=== PATIENT | male | born 1975 | race Hispanic/Latino ===

== ENCOUNTER 2017-08-05 04:33 | Emergency (ER) | payer MEDICARE ==
[2017-08-05] MEDS ORDERED: KETOROLAC TROMETHAMINE 60 MG/2 ML VIAL ONE (04:51)
[2017-08-05] MEDS ORDERED: CYCLOBENZAPRINE HCL 10 MG TABLET ONE (04:52)
== END 2017-08-05 05:14 | disposition home or self-care (01) ==
LOC: EDH 04:33
DX: M25.552 Pain in left hip (principal); F43.10 Post-traumatic stress disorder, unspecified
CPT/HCPCS: 96372; 99283; J1885

== ENCOUNTER 2021-03-28 03:56 | Emergency (ER) | payer OTHER ==
[~2021-03-28] VITALS: Ht 172.7 cm; Wt 88.5 kg
[~2021-03-28 03:56] MED LIST: BUPR150T8 PO; OMEP20TA25 PO
[2021-03-28] MEDS ORDERED: MAG/ALUM/SIMETH 30 ML UDCUP PO ONE (05:00)
[2021-03-28] MEDS ORDERED: DiphenhydrAMINE HCL 25 MG/10 ML ELIXIR UDCUP PO ONE (05:00)
[2021-03-28] MEDS ORDERED: FAMOTIDINE 20MG TAB PO ONE (05:00)
[2021-03-28] MEDS ORDERED: ONDANSETRON ODT 4MG TAB SL ONE (05:00)
[2021-03-28] MEDS ORDERED: PANTOPRAZOLE 40 MG TAB DR PO ONE (05:00)
[2021-03-28 05:21] LABS: BASOPHILS % (AUTO) 0.8 % (0.0-5.0); EOSINOPHILS % (AUTO) 1.9 % (0.0-8.0); HEMATOCRIT 43.5 % (42-54); LYMPHOCYTES % (AUTO) 16.8 % (21.0-51.0); MEAN CORPUSCULAR HEMOGLOBIN 30.2 pg (27.0-33.0); MEAN CORPUSCULAR HGB CONC 34.5 g/dL (32.0-36.0); MEAN CORPUSCULAR VOLUME 87.7 fL (79-99); MONOCYTES % (AUTO) 8.4 % (3.0-13.0); NEUTROPHILS % (AUTO) 71.8 % (40.0-77.0); PLATELET COUNT (AUTO) 320 K/uL (130-400); RED BLOOD CELL COUNT(AUTO) 4.96 MIL/uL (4.50-6.20); RED CELL DISTRIBUTION WIDTH 12.1 % (11.0-15.5); WHITE BLOOD COUNT (AUTO) 7.4 K/uL (4.8-10.8)
[2021-03-28 05:22] LABS: APPEARANCE,URINE Clear (CLEAR); BILIRUBIN,URINE Negative (NEGATIVE); COLOR,URINE Yellow (YELLOW); GLUCOSE, URINE (UA) Negative (NEGATIVE); KETONES,URINE Negative (NEGATIVE); LEUKOCYTE ESTERASE ,URINE Trace (NEGATIVE); NITRATE,URINE Negative (NEGATIVE); OCCULT BLOOD,URINE Negative (NEGATIVE); PROTEIN,URINE Negative (NEGATIVE); UROBILINOGEN,URINE 0.2 mg/dL (0.2-1.0)
[2021-03-28] MEDS ORDERED: ONDANSETRON 4MG INJ ONE (05:23)
[2021-03-28] MEDS ORDERED: PANTOPRAZOLE 40 MG/VIAL ONE (05:23)
[2021-03-28] MEDS ORDERED: PROCHLORPERAZINE 10MG/2ML INJ ONE (05:24)
[2021-03-28] MEDS ORDERED: KETOROLAC 30MG VIAL (30MG/ML) ONE (05:24)
[2021-03-28] MEDS ORDERED: FAMOTIDINE 20MG VIAL IV ONE ×2 (05:24→05:30)
[2021-03-28 05:25] LABS: CREATININE 1.1 mg/dL (0.5-1.5); POTASSIUM 3.7 mmol/L (3.5-5.1)
[2021-03-28 05:29] LABS: ALBUMIN 4.2 g/dL (3.5-5.0); BILIRUBIN,TOTAL 0.4 mg/dL (0.2-1.0); TOTAL PROTEIN, SERUM 7.9 g/dL (6.0-8.3)
[2021-03-28] MEDS ORDERED: 0.9%NACL 1000ML 1,000 ML IV ONE (05:30)
[2021-03-28] MEDS ORDERED: KETOROLAC 30MG VIAL (30MG/ML) IVP ONE (05:30)
[2021-03-28] MEDS ORDERED: PANTOPRAZOLE 40 MG/VIAL IVP ONE (05:30)
[2021-03-28] MEDS ORDERED: ONDANSETRON 4MG INJ IVP ONE (05:30)
[2021-03-28] MEDS ORDERED: PROCHLORPERAZINE 10MG/2ML INJ IV ONE (05:30)
[2021-03-28 05:42] LABS: RBC,URINE None Seen /HPF (0-1); WBC,URINE 0-1 /HPF (0-1)
[2021-03-28 05:43] LABS: BACTERIA,URINE None Seen /HPF (None Seen); SQUAMOUS EPITHELIAL CELL,UR None Seen /HPF (0-2)
[2021-03-28] MEDS ORDERED: IOHEXOL 350 MG/ML 100ML INFUS..BTL IV ONE (05:58)
[2021-03-28 10:26] VITALS: BP 126/81
== END 2021-03-28 10:48 | disposition home or self-care (01) ==
LOC: EDH 03:56
DX: K52.9 Noninfective gastroenteritis and colitis, unspecified (principal); E86.9 Volume depletion, unspecified; F41.9 Anxiety disorder, unspecified; K21.9 Gastro-esophageal reflux disease without esophagitis; Z79.1 Long term (current) use of non-steroidal anti-inflammatories (NSAID); Z79.899 Other long term (current) drug therapy
CPT/HCPCS: 36415; 74177; 80053; 81001; 83690; 85025; 96361; 96374; 96375; 99285; C9113; J0780; J1885; J2405; J3490; J7030; Q9967

== ENCOUNTER 2021-07-18 21:49 | Emergency (ER) | payer OTHER ==
[~2021-07-18] VITALS: Ht 172.7 cm; Wt 88.5 kg
[2021-07-18 23:15] VITALS: BP 140/86
[2021-07-18] MEDS ORDERED: ACETAMINOPHEN 500 MG TABLET PO ONE (23:30)
[2021-07-18] MEDS ORDERED: TETANUS/DIPHTHERIA TOXOID [ADULT] 0.5 ML VIAL IM ONE (23:30)
[2021-07-18] MEDS ORDERED: IBUPROFEN 600 MG TABLET PO ONE (23:30)
[2021-07-18] MEDS ORDERED: SULFAMETHOX-TMP DS 800/160 TAB PO ONE (23:30)
[2021-07-18] MEDS ORDERED: SULF1TAB42 PO (23:35)
[2021-07-18] MEDS ORDERED: MELO7.5T12 PO (23:35)
== END 2021-07-18 23:59 | disposition home or self-care (01) ==
LOC: EDH 21:49
DX: S90.01XA Contusion of right ankle, initial encounter (principal); F43.10 Post-traumatic stress disorder, unspecified; Z79.899 Other long term (current) drug therapy; Z98.890 Other specified postprocedural states; W22.8XXA Striking against or struck by other objects, initial encounter; Y93.89 Activity, other specified; Y92.89 Other specified places as the place of occurrence of the external cause; Y99.8 Other external cause status
CPT/HCPCS: 73610; 90471; 90714

== ENCOUNTER 2023-11-27 17:09 | Emergency (ER) | payer OTHER ==
[~2023-11-27] VITALS: Ht 175.3 cm; Wt 77.1 kg
[~2023-11-27 17:09] MED LIST changes: +BUPR-113 PO; -BUPR150T8 PO; +MELO7.5T12 PO; +OMEP20TA20 PO; -OMEP20TA25 PO; +SULF1TAB42 PO
[2023-11-27] MEDS: NEOMY SULF/BACITRA/POLYMYXIN B 1 EACH PACKET TP ONE (17:45)
[2023-11-27] MEDS ORDERED: CLIN-141 PO (17:46)
[2023-11-27 17:59] VITALS: BP 109/66; PULSE 89; RESP 17; O2SAT 99
[2023-11-27] MEDS: LIDOCAINE HCL 1% 20 ML VIAL ONE (18:25)
[2023-11-27] MEDS ORDERED: LIDOCAINE HCL 1% 20 ML VIAL INJ SCH (18:30)
== END 2023-11-27 18:01 | disposition home or self-care (01) ==
LOC: EDH 17:09
DX: S81.811A Laceration without foreign body, right lower leg, initial encounter (principal); K21.9 Gastro-esophageal reflux disease without esophagitis; Z79.899 Other long term (current) drug therapy; Z98.890 Other specified postprocedural states; X58.XXXA Exposure to other specified factors, initial encounter; Y93.89 Activity, other specified; Y92.89 Other specified places as the place of occurrence of the external cause; Y99.8 Other external cause status
CPT/HCPCS: 12004